=== PATIENT | female | born 1980 | race American Indian/Alaskan Native ===

== ENCOUNTER 2016-11-15 19:39 | Emergency (ER) | payer MEDICAID ==
[2016-11-15 20:19] LABS: Basophils % (Auto) 0.5 % (0.0-1.8); Eosinophils % (Auto) 1.9 % (0.0-4.3); Hematocrit 36.7 % (30.3-42.9); Hemoglobin 12.3 gm/dl (10.1-14.3); Mean Corpuscular HGB Conc 34 % (30-34); Mean Corpuscular Hemoglobin 27 pg (28-32); Mean Corpuscular Volume 81 fl (79-97); Platelet Count 329 K/mm3 (140-440); Red Blood Count 4.55 M/mm3 (3.65-5.03); Red Cell Distribution Width 14.4 % (13.2-15.2); White Blood Count 11.3 K/mm3 (4.5-11.0)
[2016-11-15 20:39] LABS: Anion Gap 18 mmol/L; Blood Urea Nitrogen 10 mg/dL (7-17); Calcium 8.6 mg/dL (8.4-10.2); Carbon Dioxide 23 mmol/L (22-30); Glucose 137 mg/dL (65-100); Potassium 3.2 mmol/L (3.6-5.0); Sodium 137 mmol/L (137-145)
[2016-11-15 20:59] VITALS: BP 119/76
--- NOTE | 2016-11-15 23:55 | Emergency Department Report ---
- General Chief Complaint: Upper Respiratory Infection Stated Complaint: L EAR PAIN/FEVER/DIZZNESS/BODY PAIN Time Seen by Provider: 11/15/16 23:52 Source: patient Mode of arrival: Ambulatory Limitations: No Limitations - History of Present Illness Initial Comments: 36-year-old -[place] female with a past medical history of diabetes and PCO as comes in today for flulike symptoms she complains of sore throat and fever dizziness body aches times one day. She reports she has been taking TheraFlu which has not helped. She reports that she had vomited once. But has lots of mucus. MD Complaint: fever, cough, sore throat, rhinorrhea, nasal congestion -: days(s) (1) Severity: moderate Severity scale (0 -10): 4 Quality: sharp Improves With: nothing Worsens With: nothing Context: sick contacts - Related Data Home Medications Medication Instructions Recorded Confirmed Last Taken metFORMIN [Glucophage] 500 mg PO BID 10/06/14 01/13/16 Unknown Previous Rx's Medication Instructions Recorded Last Taken Type Metaxalone [Skelaxin] 800 mg PO TID PRN #15 tablet 01/13/16 Unknown Rx traMADol [Ultram 50 MG tab] 50 mg PO Q6HR PRN #20 tablet 01/13/16 Unknown Rx Cephalexin [Keflex] 500 mg PO BID #20 capsule 03/16/16 Unknown Rx Mupirocin [Bactroban 2%] 1 applic TP TID #1 tube 03/16/16 Unknown Rx Azithromycin [Zithromax] 250 mg PO QDAY #6 tablet 11/16/16 Unknown Rx Ibuprofen [Motrin] 800 mg PO Q8HR PRN #30 tablet 11/16/16 Unknown Rx Allergies Allergy/AdvReac Type Severity Reaction Status Date / Time oxycodone Allergy Itching Verified 04/29/16 15:20 ED Review of Systems ROS: Stated complaint: L EAR PAIN/FEVER/DIZZNESS/BODY PAIN Other details as noted in HPI Constitutional: no symptoms reported, weakness Eyes: denies: eye pain, eye discharge, vision change ENT: ear pain, throat pain Respiratory: cough Cardiovascular: denies: chest pain, palpitations Endocrine: no symptoms reported Gastrointestinal: vomiting. denies: abdominal pain, nausea, diarrhea Genitourinary: denies: urgency, dysuria, discharge Musculoskeletal: denies: back pain, joint swelling, arthralgia Skin: denies: rash, lesions Neurological: denies: headache, weakness, paresthesias Psychiatric: denies: anxiety, depression Hematological/Lymphatic: denies: easy bleeding, easy bruising ED Past Medical Hx - Past Medical History Previous Medical History?: Yes Hx Diabetes: Yes (gestational) Additional medical history: Back Pain. MORBID OBESITY. PCOS - Surgical History Past Surgical History?: Yes Additional Surgical History: C-Sec x 4. LEFT KNEE. CYST/BOIL TO BUTTOCK REMOVED - Social History Smoking Status: Never Smoker Substance Use Type: None - Medications Home Medications: Home Medications Medication Instructions Recorded Confirmed Last Taken Type metFORMIN [Glucophage] 500 mg PO BID 10/06/14 01/13/16 Unknown History Metaxalone [Skelaxin] 800 mg PO TID PRN #15 tablet 01/13/16 Unknown Rx traMADol [Ultram 50 MG tab] 50 mg PO Q6HR PRN #20 tablet 01/13/16 Unknown Rx Cephalexin [Keflex] 500 mg PO BID #20 capsule 03/16/16 Unknown Rx Mupirocin [Bactroban 2%] 1 applic TP TID #1 tube 03/16/16 Unknown Rx Azithromycin [Zithromax] 250 mg PO QDAY #6 tablet 11/16/16 Unknown Rx Ibuprofen [Motrin] 800 mg PO Q8HR PRN #30 tablet 11/16/16 Unknown Rx ED Physical Exam - General Limitations: No Limitations General appearance: alert - Head Head exam: Present: atraumatic, normocephalic - Eye Eye exam: Present: normal appearance - ENT ENT exam: Present: normal exam, mucous membranes moist, TM's normal bilaterally - Neck Neck exam: Present: normal inspection, full ROM - Respiratory Respiratory exam: Present: normal lung sounds bilaterally - Cardiovascular Cardiovascular Exam: Present: regular rate, normal rhythm, normal heart sounds - GI/Abdominal GI/Abdominal exam: Present: soft, normal bowel sounds - Extremities Exam Extremities exam: Present: normal inspection, full ROM - Back Exam Back exam: Present: normal inspection - Neurological Exam Neurological exam: Present: alert, oriented X3 ED Course Vital Signs 11/15/16 20:55 Temperature 98.9 F Pulse Rate 86 Respiratory 20 Rate Blood Pressure 119/76 [Right] O2 Sat by Pulse 97 Oximetry ED Medical Decision Making - Lab Data Result diagrams: 11/15/16 20:06 11/15/16 20:06 - Medical Decision Making Patient has been evaluated by this provider fast type. Discussed the patient on recheck the rapid strep since her tonsils are so low I'm not sure if they were able to obtain any sample. Discussed patient will give her Motrin for fever and pain discussed the patient I will place her on antibiotics for pharyngitis. Patient is to follow-up with her primary care provider patient verbalized understanding Critical care attestation.: If time is entered above; I have spent that time in minutes in the direct care of this critically ill patient, excluding procedure time. ED Disposition Clinical Impression: URI (upper respiratory infection) Qualifiers: URI type: acute pharyngitis Pharyngitis/tonsillitis etiology: unspecified etiology Qualified Code(s): J02.9 - Acute pharyngitis, unspecified Disposition: DISCHARGED TO HOME OR SELFCARE Is pt being admited?: No Does the pt Need Aspirin: No Condition: Stable Instructions: Upper Respiratory Infection (ED) Additional Instructions: Take antibiotics as prescribed, take Motrin as prescribed. Follow-up with her primary care provider if symptoms persist I does not get better. Prescriptions: Azithromycin [Zithromax] 250 mg PO QDAY #6 tablet Ibuprofen [Motrin] 800 mg PO Q8HR PRN #30 tablet PRN Reason: Pain Referrals: FABIANA FITZGERALD MD [Primary Care Provider] - 3-5 Days Forms: Work/School Release Form(ED), Accompanied Note
[2016-11-16] MEDS ORDERED: MOTRIN PO ONE (00:20)
== END 2016-11-16 01:39 | disposition home or self-care (01) ==
LOC: ED 19:39
DX: J02.9 Acute pharyngitis, unspecified (principal); E66.01 Morbid (severe) obesity due to excess calories; Z88.6 Allergy status to analgesic agent
CPT/HCPCS: 36415; 80048; 84703; 85025; 87116; 87400; 87430; 99283